=== PATIENT | female | born 1965 | race Asian ===

== ENCOUNTER 2024-01-16 08:23 | Day surgery (SDC) | payer OTHER, MEDICAID ==
[~2024-01-16] VITALS: Ht 157.5 cm; Wt 70.3 kg
[~2024-01-16 08:23] MED LIST: CEFAZOLIN SOD 2 GM in D5W 50 ML IV ONE
[2024-01-16] MEDS ORDERED: MIDAZOLAM HCL 2 MG/2 ML VIAL (VERSED) ONE (11:10)
[2024-01-16] MEDS ORDERED: KETOROLAC TROMETHAMINE 30 MG VIAL ONE (11:10)
[2024-01-16] MEDS ORDERED: BUPIVACAINE /PF 0.25% 30 ML VIAL INJ ONE (11:10)
[2024-01-16] MEDS ORDERED: LR 1,000 ML IV.SOLN IV ONE (11:10)
[2024-01-16] MEDS ORDERED: WATER FOR IRRIGATION,STERILE 1,000 ML IRRIG.SOLN IR ONE (11:10)
[2024-01-16] MEDS ORDERED: NS IRRIG SOLN 1000 ML IR ONE (11:10)
[2024-01-16] MEDS ORDERED: ROCURONIUM BROMIDE 10 MG/ML (ZEMURON) ONE (11:10)
[2024-01-16] MEDS ORDERED: fentaNYL CITRATE/PF 100 MCG/2 ML AMP ONE (11:10)
[2024-01-16] MEDS ORDERED: LIDOCAINE MPF 2% 20 MG/1 ML, 5 ML VIAL INH ONE (11:10)
[2024-01-16] MEDS ORDERED: SUGAMMADEX SODIUM 200 MG/2 ML VIAL IV ONE (11:10)
[2024-01-16] MEDS ORDERED: ONDANSETRON HCL 4 MG/2 ML VIAL ONE (11:10)
[2024-01-16] MEDS ORDERED: DESFLURANE 15 MIN GAS INH ONE (11:10)
[2024-01-16] MEDS ORDERED: DEXAMETHASONE SOD PHOSPHATE 4 MG/ML VIAL ONE (11:10)
[2024-01-16] MEDS ORDERED: PROPOFOL 200MG/ 20ML VIAL (DIPRIVAN) IV ONE (11:10)
[2024-01-16] MEDS ORDERED: ACETAMINOPHEN I.V. 1000 MG 100 ML IV ONE (12:28)
[2024-01-16] MEDS ORDERED: MEPERIDINE HCL/PF 25 MG/ML DISP.SYRIN IVP PRN (12:30)
[2024-01-16] MEDS ORDERED: HYDROmorphone 1 MG/ML INJ. CARTRIDGE IVP PRN ×2 (12:30)
[2024-01-16] MEDS ORDERED: hydrALAZINE HCL 20 MG/ML VIAL IVP PRN (12:30)
[2024-01-16] MEDS ORDERED: LABETALOL 100 MG/ 20ML VIAL IVP PRN (12:30)
[2024-01-16] MEDS ORDERED: LR 1,000 ML IV SCH (12:30)
[2024-01-16 12:34] VITALS: O2SAT 100
[2024-01-16] MEDS ORDERED: METOCLOPRAMIDE HCL 10 MG/2 ML VIAL ONE (13:48)
[2024-01-16] MEDS: METOCLOPRAMIDE HCL 10 MG/2 ML VIAL IVP PRN (13:50)
[2024-01-16 16:18] VITALS: BP_SYST 120; PULSE 70; RESP 20
== END 2024-01-16 16:10 | disposition home or self-care (01) ==
LOC: SDS 08:23 → SMU 08:23 → SDS 16:10
PROVIDERS: ATTEND Orthopaedic Surgery Sports Medicine
DX: M75.121 Complete rotator cuff tear or rupture of right shoulder, not specified as traumatic (principal); G89.29 Other chronic pain; M25.511 Pain in right shoulder; I10 Essential (primary) hypertension; Z79.899 Other long term (current) drug therapy; Z98.890 Other specified postprocedural states; Z88.2 Allergy status to sulfonamides; Z88.8 Allergy status to other drugs, medicaments and biological substances
CPT/HCPCS: 87081; 29827; 64415; 29822; 93005; J3490 ×2; J0690; J1100; J1885; J2765; J2250; J2405; J2704; J3010; J7060; J7120; J0131; C1713 ×2